=== PATIENT | female | born 1980 | race Two or more races ===

== ENCOUNTER 2018-05-20 10:22 | Outpatient (CLI) | payer OTHER | END 2018-05-20 10:30 | disposition home or self-care (01) | LOC: SONOGRAMA 10:22 | DX: N84.0 Polyp of corpus uteri (principal) ==

== ENCOUNTER 2018-10-15 08:15 | Inpatient (IN) | payer OTHER ==
[~2018-10-15] VITALS: Ht 157.5 cm; Wt 92.5 kg
[2018-10-15] MEDS ORDERED: CLARITIN10 M1 (09:11)
[2018-10-15] MEDS ORDERED: HYDROCHLOROTH12.5 M1 (09:11)
[2018-10-23] MEDS ORDERED: CODE1TAB37 PO (08:26)
[2018-10-23] MEDS ORDERED: IBUPROFEN400 MG PO (08:26)
== END 2018-10-23 15:26 | disposition home or self-care (01) | DRG 743 ==
LOC: OB/GYN 10-22 08:15 → O/R 10-22 11:44 → SURH 10-22 12:55 → OB/GYN 10-22 13:00 → SURH 10-23 15:26
PROVIDERS: ADMIT Obstetrics & Gynecology
PROC: 0UQF7ZZ Repair Cul-de-sac, Via Natural or Artificial Opening (ICD-10-PCS; 2018-10-22)
PROC: 0USG7ZZ Reposition Vagina, Via Natural or Artificial Opening (ICD-10-PCS; 2018-10-22)
PROC: 0TJB8ZZ Inspection of Bladder, Via Natural or Artificial Opening Endoscopic (ICD-10-PCS; 2018-10-22)
PROC: 0UT98ZZ Resection of Uterus, Via Natural or Artificial Opening Endoscopic (ICD-10-PCS; principal; 2018-10-22 13:00)
DX: N92.1 Excessive and frequent menstruation with irregular cycle (principal); N81.5 Vaginal enterocele